=== PATIENT | female | born 1940 ===

== ENCOUNTER 2023-06-04 10:29 | Inpatient (IN) | payer OTHER ==
[~2023-06-04] VITALS: Ht 149.9 cm; Wt 61.2 kg
[2023-06-05] MEDS ORDERED: VERAPAMIL HCL240 M1 PO (13:37)
[2023-06-05] MEDS ORDERED: LIPITOR20 MG PO (13:38)
[2023-06-05] MEDS ORDERED: LOSARTAN POTASS50 MG PO (13:38)
[2023-06-05] MEDS ORDERED: WELCHOL625 MG PO (13:38)
[2023-06-11] MEDS ORDERED: ZOLPIDEM TARTRA10 MG (09:27)
[2023-06-11] MEDS ORDERED: DICLOFENAC SODI50 MG (09:27)
== END 2023-06-14 14:49 | disposition designated cancer center or children's hospital (05) | DRG 470 ==
LOC: SURH 06-11 05:52 → O/R 06-11 05:52 → SURG 06-11 11:30 → SURH 06-11 11:47 → SURG 06-11 12:30 → SURH 06-14 14:49
PROVIDERS: ADMIT Orthopaedic Surgery; ATTEND Orthopaedic Surgery
PROC: 0SRC0JZ Replacement of Right Knee Joint with Synthetic Substitute, Open Approach (ICD-10-PCS; principal; 2023-06-11 12:30)
DX: M17.11 Unilateral primary osteoarthritis, right knee (principal); M85.661 Other cyst of bone, right lower leg